=== PATIENT | female | born 1985 | race African-American/Black ===

== ENCOUNTER 2025-04-21 11:51 | Emergency (ER) | payer OTHER ==
[~2025-04-21] VITALS: Ht 170.2 cm; Wt 69.1 kg
[2025-04-21 12:00] VITALS: BP 109/64; PULSE 80; RESP 16; TEMP 97.9; O2SAT 98
[2025-04-21 13:54] LABS: APPEARANCE,URINE CLEAR (CLEAR); BILIRUBIN,URINE NEGATIVE (NEGATIVE); COLOR,URINE COLORLESS (YELLOW); GLUCOSE, URINE (UA) NEGATIVE (NEGATIVE); KETONES,URINE NEGATIVE (NEGATIVE); LEUKOCYTE ESTERASE ,URINE NEGATIVE (NEGATIVE); NITRATE,URINE NEGATIVE (NEGATIVE); OCCULT BLOOD,URINE NEGATIVE (NEGATIVE); PROTEIN,URINE NEGATIVE (NEGATIVE); SPECIFIC GRAVITIY, URINE 1.006 (1.003-1.030); UROBILINOGEN,URINE <=1.0 mg/dL (<=1.0)
== END 2025-04-21 19:36 | disposition left against medical advice (07) ==
LOC: EMS 11:51
DX: O20.9 Hemorrhage in early pregnancy, unspecified (principal); Z3A.15 15 weeks gestation of pregnancy
CPT/HCPCS: 76805; 81003; 99284